=== PATIENT | male | born 1995 | race Caucasian/White ===

== ENCOUNTER 2016-12-27 16:51 | Emergency (ER) | payer MEDICAID ==
[~2016-12-27] VITALS: Ht 180.3 cm; Wt 98.4 kg
[2016-12-27 16:51] VITALS: BP_SYST 157
--- NOTE | 2016-12-27 17:05 | NUR ---
Ambulatory to [facility] chair 1
--- NOTE | 2016-12-27 17:08 | NUR ---
Jaxon De Los Santos MEMBERSHIP MANAGER evaluating pt in [facility].
--- NOTE | 2016-12-27 17:10 | NUR ---
Pt c/o substernal chest pain with palpation and when flexing chest inwards. Denies shortness of breath. Denies injury. VSS, no acute distress.
[2016-12-27] MEDS ORDERED: IBUPROFEN 800 MG TABLET PO ONE (17:30)
--- NOTE | 2016-12-27 17:35 | NUR ---
Medicated for pain per DIRECTOR OF MARKETING AND PROMOTIONS orders.
--- NOTE | 2016-12-27 18:00 | NUR ---
No medication reaction noted
[2016-12-27 18:05] VITALS: BP_SYST 141
--- NOTE | 2016-12-27 18:05 | NUR ---
Patient given written and verbal discharge instructions and verbalizes understanding. ER BUSINESS SERVICES OFFICER discussed with patient the results and treatment provided. Patient in stable condition. ID arm band removed. Rx of MOTRIN given. Patient educated on pain management and to follow up with PMD. Pain Scale 0/10. Opportunity for questions provided and answered.
== END 2016-12-27 18:05 | disposition home or self-care (01) ==
LOC: SED 16:51
DX: R07.89 Other chest pain (principal); Z71.6 Tobacco abuse counseling
CPT/HCPCS: 71010; 99283